=== PATIENT | male | born 1940 | race Caucasian/White ===

== ENCOUNTER 2017-09-11 11:47 | Outpatient (RCR) | payer MEDICARE, MEDICAID | END 2017-12-10 | disposition home or self-care (01) | LOC: CARDREHAB | DX: Z48.812 Encounter for surgical aftercare following surgery on the circulatory system (principal); Z95.5 Presence of coronary angioplasty implant and graft; I25.2 Old myocardial infarction ==

== ENCOUNTER 2018-04-07 09:35 | Outpatient (RCR) | payer MEDICARE, MEDICAID | END 2018-07-06 | disposition home or self-care (01) | LOC: CARDREHAB | DX: Z48.812 Encounter for surgical aftercare following surgery on the circulatory system (principal); Z95.5 Presence of coronary angioplasty implant and graft; I21.4 Non-ST elevation (NSTEMI) myocardial infarction ==

== ENCOUNTER 2018-07-07 10:00 | Outpatient (RCR) | payer MEDICARE, MEDICAID | END 2018-07-24 14:00 | disposition home or self-care (01) | LOC: CARDREHAB 10:00 | DX: Z48.812 Encounter for surgical aftercare following surgery on the circulatory system (principal); Z95.5 Presence of coronary angioplasty implant and graft; I25.2 Old myocardial infarction ==